=== PATIENT | male | born 1940 | race Caucasian/White ===

== ENCOUNTER 2018-09-17 09:00 | Inpatient (IN) ==
[2018-09-22] MEDS ORDERED: ceFAZolin 1 GM VIAL IV SCH (07:00)
[2018-09-22] MEDS ORDERED: CELECOXIB 200 MG CAPSULE PO SCH (07:00)
[2018-09-22] MEDS ORDERED: oxyCODONE 10 MG TAB.ER.12H PO SCH (07:00)
[2018-09-22] MEDS ORDERED: PREGABALIN 75 MG CAPSULE PO SCH (07:00)
[2018-09-22] MEDS ORDERED: fentaNYL 100 MCG/2 ML VIAL IV ONE (09:30)
[2018-09-22] MEDS ORDERED: ONDANSETRON 4 MG/2 ML VIAL IV ONE (09:30)
[2018-09-22] MEDS ORDERED: MIDAZOLAM 2 MG/2 ML VIAL IV ONE (09:30)
[2018-09-22] MEDS ORDERED: TRANEXAMIC ACID 1,000 MG/10 ML VIAL IV ONE ×3 (09:30→11:49)
[2018-09-22] MEDS ORDERED: LIDOCAINE HCL/PF 100 MG/5 ML SYRINGE IV ONE (09:30)
[2018-09-22] MEDS ORDERED: SUCCINYLCHOLINE 20 MG/ML ML IV ONE (09:30)
[2018-09-22] MEDS ORDERED: GLYCOPYRROLATE 0.2 MG/ML VIAL IV ONE (09:30)
[2018-09-22] MEDS ORDERED: ROPIVACAINE HCL/PF 30 ML VIAL IJ ONE (09:30)
[2018-09-22] MEDS ORDERED: PROPOFOL 200 MG/20 ML VIAL IV ONE (09:30)
[2018-09-22] MEDS ORDERED: KETAMINE 100 MG/ML ML IV ONE (09:30)
[2018-09-22] MEDS ORDERED: GENTAMICIN SULFATE 800 MG/20 ML VIAL IR ONE (10:13)
[2018-09-22] MEDS ORDERED: ONDANSETRON 4 MG/2 ML VIAL IV PRN ×2 (10:50→12:55)
[2018-09-22] MEDS ORDERED: MEPERIDINE 25 MG/ML SYRINGE IV PRN (10:50)
[2018-09-22] MEDS ORDERED: IPRATROPIUM/ALBUTEROL 3 ML AMPUL.NEB NEB PRN (10:50)
[2018-09-22] MEDS ORDERED: fentaNYL 100 MCG/2 ML VIAL IV PRN (10:50)
[2018-09-22] MEDS ORDERED: METHOCARBAMOL 1,000 MG/10 ML VIAL IV PRN (10:50)
[2018-09-22] MEDS ORDERED: ACETAMINOPHEN 1,000 MG/100 ML BOTTLE IV ONE (10:50)
[2018-09-22] MEDS ORDERED: LACTATED RINGERS 1,000 ML IV SCH (11:00)
--- NOTE | 2018-09-22 12:15 | XRay Report ---
CLINICAL INFORMATION: Postsurgical follow-up TECHNIQUE: AP internal and external right shoulder. Axillary and Y views. COMPARISON: None. FINDINGS: Status post right reverse shoulder arthroplasty. Anatomic alignment demonstrated. There is postsurgical soft tissue gas. IMPRESSION: Status post reverse right shoulder arthroplasty Interpreted and Authenticated by: Thor Martinez 09/22/18
--- NOTE | 2018-09-22 12:26 | Operative Note ---
DATE OF OPERATION: 09/22/2018 PREOPERATIVE DIAGNOSES: 1. Right shoulder rotator cuff tear arthropathy. 2. Right shoulder proximal biceps tendinitis. POSTOPERATIVE DIAGNOSES: 1. Right shoulder rotator cuff tear arthropathy. 2. Right shoulder proximal biceps tendinitis. PROCEDURES: 1. Right reverse total shoulder arthroplasty. 2. Right shoulder soft tissue biceps tenodesis. SURGEON: Fifi Ellis MD MOVEMAN SURGEON: Mariela Azevedo PA-C ANESTHESIA: General. ESTIMATED BLOOD LOSS: 100 mL COMPLICATIONS: None noted. SPECIMENS REMOVED: None. DRAINS: None. IMPLANTS: DePuy cementless metaglene OLGUIN coated, DePuy Delta Xtend locking metaglene screw 4.5 x 24 x3, 4.5 x 18 nonlocking x1, DePuy Delta Xtend glenosphere 38 mm standard, DePuy Delta Xtend modular eccentric epiphysis size 1 right OLGUIN coated cementless, DePuy Delta Xtend modular humeral stem size 12 OLGUIN coated cementless, DePuy Delta Xtend humeral polyethylene cup standard. INDICATIONS: The patient has had a longstanding history of worsening pain in the shoulder that has failed conservative treatment. Radiographs have confirmed advanced degenerative joint disease and a failed rotator cuff. After a long discussion about treatment options, the patient elected to proceed with a reverse total shoulder arthroplasty. The risks and benefits were discussed with the patient in detail including, but not limited to, the risks of anesthesia, problems with the heart or lungs related to anesthesia, infection, compromise or injury to the nerves and blood vessels, deep venous thrombosis, pulmonary embolism, pneumonia, continued pain after surgery, worsening pain or symptoms after surgery, swelling, loss of motion, instability, fracture, arm length discrepancy, and need for repeat surgery. DESCRIPTION OF PROCEDURE: The patient was seen in the preanesthesia waiting room where all questions were answered and the correct side and site were identified and marked. The patient was transferred to the operating room and administered the anesthetic and given preoperative antibiotics. A time-out was then called. The patient was placed in the modified beach chair position with all prominences well padded. The extremity was prepped and draped from the fingers up to the neck. A standard deltopectoral skin incision was created. Dissection was carried down to the deltopectoral groove and the cephalic vein was isolated medially and retracted laterally with the deltoid. Retractors were placed and the coracobrachialis was split up to the coracoacromial ligament allowing retraction of the conjoined tendon. We split the subscapularis 1 cm medial to the bicipital groove and extended the split into the rotator interval. This was tagged for later repair. The supraspinatus and infraspinatus had been previously torn and retracted. The biceps was cut and a soft tissue tenodesis was performed into the anterior shoulder with #2 FiberWire. A capsular release was performed in a posterior subperiosteal direction along the humerus. The humeral head was then dislocated. We established intramedullary access and hand reamed up to get good cortical chatter with the Insightlyuy Delta XTEND reverse total shoulder instrumentation. We then used the intramedullary guide and set to about 5 degrees of retroversion. The proximal humerus cut was performed and osteophytes were removed. A metal protector plate was then placed. Attention was then turned to the glenoid. Retractors were placed for optimal visualization and the labrum was excised in its entirety. A centralizing Steinmann pin was placed just into the posterior inferior quadrant in a standard fashion. We reamed over the pin to remove all the cartilage and get to a good base for the prosthesis. The drill was then placed over for the central peg. A cementless Metaglene was then impacted into place. We then drilled, measured, and placed the four screws starting inferior, then superior, then anterior, and finally posterior. The superior locking screw was lined up at the base of the coracoid process. We then impacted the head onto the Metaglene and tightened down in a standard fashion. Attention was then turned back to the humerus. Proximal reaming was performed off the intramedullary guide into the humeral head, using the eccentric guide to allow best coverage. We again set version and broached up to a stable implant. Trials were placed and good tension, motion, and stability were obtained at this point. Trials were removed and the final press fit femoral prosthesis was impacted into place with measured version. The final polyethylene was placed and the shoulder was reduced and again checked for motion, tension, and stability. We irrigated with 3 liters of antibiotic saline and closed the subscapularis with # 2 FiberWire. We irrigated again and closed the deltopectoral interval with several # 0 Vicryl figure of eight sutures. The subcutaneous layer was closed with 2-0 Vicryl and the skin was closed with 4-0 Monocryl in a subcuticular fashion. A sterile pressure dressing was applied and the patient was placed into an abduction sling. All needle and sponge counts were correct. The patient was transferred to the recovery room in stable condition. [email or web address] Job ID: [id number] Doc ID: [id number] Fifi Ellis MD
[2018-09-22] MEDS ORDERED: BISACODYL 10 MG SUPP.RECT PR PRN (12:55)
[2018-09-22] MEDS ORDERED: BENZOCAINE/MENTHOL 1 LOZENGE PO PRN (12:55)
[2018-09-22] MEDS ORDERED: KETOROLAC 15 MG/ML VIAL IV PRN (12:55)
[2018-09-22] MEDS ORDERED: METHOCARBAMOL 750 MG TABLET PO PRN (12:55)
[2018-09-22] MEDS ORDERED: MAGNESIUM HYDROXIDE 30 ML ORAL.SUSP PO PRN (12:55)
[2018-09-22] MEDS ORDERED: FLEETS ADULT ENEMA PR PRN (12:55)
[2018-09-22] MEDS ORDERED: ONDANSETRON ODT 4 MG TABLET SL PRN (12:55)
[2018-09-22] MEDS ORDERED: POLYETHYLENE GLYCOL 3350 17 GM PACKET PO PRN (12:55)
--- NOTE | 2018-09-22 12:55 | Brief Operative Note ---
Date of procedure: 09/22/18 Pre-op diagnosis: right shoulder rtc tear arthropathy, biceps tendonitis Post-op diagnosis: same Procedure: right reverse tsa, biceps tendon transfer Grafts/Implants: Yes Anesthesia: GETA Complications: none Surgeon: Thor Ellis Manager Shift: Mariela Azevedo Estimated blood loss (cc): 100 Specimens Removed/Pathology: none sent Condition: stable Disposition: PACU
[2018-09-22] MEDS ORDERED: DEXTROSE 50% 50 ML VIAL IV PRN (12:59)
[2018-09-22] MEDS ORDERED: DEXTROSE 31 GM ORAL.SUSP PO PRN (12:59)
--- NOTE | 2018-09-22 13:04 | Discharge Summary ---
Ortho Discharge - TSA - Patient Instructions Diet: Regular Diet Activity: non weight bearing Total Shoulder Protocol: Leave immobilizer in place except for bathing and ROM. Abduction pillow. Continue to wear sling until seen by physician. Codman Pendulum : These exercises use momentum produced by your body to move your shoulder joint. Bend your knees and shift your weight to your front leg, then back, allowing your arm to swing in the same directions. Using the same technique, alternately shift your weight between your right and left legs, allowing your arm to swing from side to side. These exercises are also performed in counterclockwise and clockwise circular motions. Typically these exercises are performed several times per day, for a set number repetitions or minutes, such as 20 times in a row or 5 minutes at a time. Dressing Care: May shower in 2 days - Follow Up Plan Follow Up Appointments: Mariela Azevedo PA-C [Physician Security Control Room Officer] - 10/07/18 9:00 am Disposition: Home, Self-Care Prognosis: Good Rehab Potential: Good I certify that the patient requires SNF services: No Overall status at discharge: patient is progressing back to baseline - Orders For Discharge Prescriptions: HYDROcodone/APAP 10/325MG [[place] 10-325Mg] 1 - 2 tab PO Q4H PRN #60 tab PRN Reason: Pain Additional Discharge Orders: Physical Therapy at Discharge - TSA Location: None Selected Brace/Splint Location: None Selected
[2018-09-22] MEDS: 0.9 % SODIUM CHLORIDE 1,000 ML IV SCH ×2 (13:33→23:37)
[2018-09-22] MEDS: 0.9 % SODIUM CHLORIDE 10 ML SYRINGE IV SCH ×2 (14:54→20:14)
[2018-09-22] MEDS: ceFAZolin 1 GM VIAL IV SCH ×2 (16:07→23:37)
[2018-09-22] MEDS: INSULIN LISPRO 1 UNIT/0.01 ML UNIT SQ SCH ×2 (16:53→20:15)
[2018-09-22] MEDS: DOCUSATE SODIUM 100 MG CAPSULE PO SCH (20:13)
[2018-09-22] MEDS: LOSARTAN 25 MG TABLET PO SCH (20:13)
[2018-09-22] MEDS: NIACIN 250 MG CAP.SR.12H PO SCH (20:13)
[2018-09-22] MEDS: METFORMIN HCL PO SCH (20:15)
[2018-09-22] MEDS: PIOGLITAZONE HCL PO SCH (20:15)
[2018-09-22] MEDS ORDERED: PRAVASTATIN 40 MG TABLET PO SCH (21:00)
[2018-09-22] MEDS ORDERED: SIMVASTATIN 20 MG TABLET PO SCH (21:00)
[2018-09-22] MEDS ORDERED: SENNOSIDES 1 TABLET PO SCH (21:00)
[2018-09-23] MEDS: HYDROcodone/APAP 10/325MG TABLET PO PRN ×2 (01:25→07:26)
--- NOTE | 2018-09-23 06:35 | Orthopedic Progress Note ---
Subjective Patient information: Note initiated : 09/23/18 at 6:33 am Service Date, if different from initiated Date: [] Patient: Nacho Doe 78 y/o M admitted on 09/22/18 for Right Reverse Total Shoulder Arthroplasty. Chief Complaint: [POD #1 s/p right reverse TSA Doing well, reports minimal pain. No chest pain, SOB, nausea, vomiting, numbness or tingling. No questions or concerns] Objective Vital signs: Vital Signs Temp Pulse Resp BP Pulse Ox 09/23/18 04:00 98.7 F 76 22 131/64 92 09/23/18 00:00 98.3 F 72 22 146/74 93 09/22/18 20:00 98.4 F 62 24 H 133/69 91 09/22/18 16:11 59 L 09/22/18 14:32 56 L 20 138/65 100 09/22/18 14:01 47 L 18 121/60 100 09/22/18 13:30 54 L 20 110/63 99 09/22/18 13:01 57 L 20 108/61 95 09/22/18 12:45 51 L 16 115/66 98 09/22/18 12:30 53 L 131/63 97 09/22/18 12:15 97.2 F 52 L 20 111/58 93 09/22/18 12:00 94 09/22/18 11:55 96.9 F L 57 L 17 130/53 96 09/22/18 11:40 97.1 F 54 L 14 125/58 95 09/22/18 11:25 97.2 F 63 14 127/61 99 09/22/18 11:20 62 13 126/64 95 09/22/18 11:15 61 14 130/56 95 09/22/18 11:10 97.4 F 54 L 15 99/48 96 09/22/18 07:17 97.8 F 52 L 20 133/67 97 Intake and Output 09/22/18 09/23/18 09/23/18 21:59 05:59 13:59 Intake Total 2300 / 2300 400 / 400 Output Total 275 / 275 300 / 300 Balance 2024 / 2024 100 / 100 Intake: IV 1000 / 1000 Sodium Chloride 0.9% 1,000 ml @ 1000 / 1000 125 mls/hr IV .Q8H [facility] Rx#: [id number] Oral 1300 / 1300 400 / 400 Output: Void Amount 275 / 275 300 / 300 Other: Meal Breakfast Percent of Meal Consumed 100% Feeding Ability Independent Urine Appearance Clear Clear Urine Color Light Shanna Bright Yellow Urine Odor Normal Normal Weight 184 lb Intake & Output: Intake & Output 09/22/18 09/23/18 09/23/18 21:59 05:59 13:59 Intake Total 2300 / 2300 400 / 400 Output Total 275 / 275 300 / 300 Balance 2024 100 / 100 Weight 184 lb Intake: IV 1000 / 1000 Sodium Chloride 0.9% 1,000 ml @ 1000 / 1000 125 mls/hr IV .Q8H [facility] Rx#: [id number] Oral 1300 / 1300 400 / 400 Output: Void Amount 275 / 275 300 / 300 Other: Meal Breakfast Percent of Meal Consumed 100% Feeding Ability Independent Urine Appearance Clear Clear Urine Color Light Shanna Bright Yellow Urine Odor Normal Normal Incision: Yes healing, No draining, No red, No swollen, No inflamed, Yes clean and dry Incision clean and dry: Yes Dressing: Yes clean, Yes dry, Yes intact, Yes splint in place Weight bearing status: non Neurological exam IM: Yes alert, Yes oriented X3, Yes motor sensory intact, Yes neurovascular intact Additional Comments: full ROM fingers and hands - Periperhal Pulses Peripheral pulses: 2+: radial (L), radial (R) - Labs CBC & BMP: 09/23/18 04:04 Labs: 09/23/18 04:04 Hgb 10.7 L Hct 31.8 L Assessment and Plan (1) Osteoarthritis, shoulder POD #1 s/p right reverse TSA: -d/c to home today -PT -NWB, sling rail track layer -dermabond -pain control -f/u in clinic 10-14 days for PO Status: Acute
[2018-09-23] MEDS ORDERED: ATENOLOL 25 MG TABLET PO SCH (09:00)
[2018-09-23] MEDS ORDERED: TAMSULOSIN 0.4 MG CAPSULE PO SCH (09:00)
[2018-09-23] MEDS ORDERED: ASPIRIN 81 MG TAB.CHEW PO SCH (09:00)
[2018-09-23] MEDS ORDERED: ATENOLOL 50 MG TABLET PO SCH (09:00)
[2018-09-23] MEDS: NIACIN 250 MG CAP.SR.12H PO SCH (09:22)
[2018-09-23] MEDS: DOCUSATE SODIUM 100 MG CAPSULE PO SCH (09:23)
[2018-09-23] MEDS: 0.9 % SODIUM CHLORIDE 10 ML SYRINGE IV SCH (09:29)
[2018-09-23] MEDS: LOSARTAN 25 MG TABLET PO SCH (09:29)
[2018-09-23] MEDS: INSULIN LISPRO 1 UNIT/0.01 ML UNIT SQ SCH (09:29)
[2018-09-23] MEDS: 0.9 % SODIUM CHLORIDE 1,000 ML IV SCH (09:30)
[2018-09-23] MEDS: METFORMIN HCL PO SCH (10:52)
[2018-09-23] MEDS: PIOGLITAZONE HCL PO SCH (10:52)
== END 2018-09-23 10:40 | disposition home or self-care (01) | DRG 483 ==
LOC: ICU 09-22 07:17 → MEDSUR 09-23 02:27
PROVIDERS: ADMIT Orthopaedic Surgery Sports Medicine; ATTEND Orthopaedic Surgery Sports Medicine
CPT/HCPCS: 97161